=== PATIENT | female | born 1960 | race Caucasian/White ===

== ENCOUNTER 2021-06-21 05:56 | Day surgery (SDC) | payer OTHER ==
[2021-06-16 10:29] VITALS: BMI 50.1
[~2021-06-21 05:56] MED LIST: LACTATED RINGERS 1,000 ML IV SCH
[2021-06-21 06:43] VITALS: TEMP 98.6
[2021-06-21] MEDS ORDERED: LACTATED RINGERS 1,000 ML IV ONE ×2 (06:56)
[2021-06-21] MEDS ORDERED: PROPOFOL 10 MG/ML 20 ML VIAL IV ONE (07:02)
[2021-06-21 07:08] LABS: Glucose,Whole Blood 161 mg/dL (75-99)
--- NOTE | 2021-06-21 07:24 | P.PCN ---
Date of Procedure: 06/21/21 Procedure(s) Performed: BRIEF HISTORY: Patient is a 61-year-old pleasant white female scheduled for an elective colonoscopy as a part of evaluation of positive cologuard PROCEDURE PERFORMED: Colonoscopy. PREOPERATIVE DIAGNOSIS: Positive cologuard. IV sedation per Anesthesia. PROCEDURE: After informed consent was obtained, the patient, was brought into the endoscopy unit. IV sedation was administered by Anesthesia under continuous monitoring. Digital rectal examination was normal. Initially the Olympus CF-160 flexible video colonoscope was then inserted in the rectum, gradually advanced into the cecum without any difficulty. Careful examination was performed as the scope was gradually being withdrawn. Ileocecal valve and the appendiceal orifice were visualized and appeared normal. Prep was excellent. Mucosa of the cecum, ascending colon, transverse colon, descending colon, sigmoid colon, and rectum appeared normal. Retroflexion was performed in the rectum and monitor hemorrhoids were seen. The patient tolerated the procedure well. IMPRESSION: Normal-appearing colon from rectum to cecum with no evidence of colorectal neoplasia Small internal hemorrhoids . RECOMMENDATIONS: Findings of this examination were discussed with the patient as well as her family. She was advised to have a repeat surveillance colonoscopy in 10 years..
[2021-06-21 07:44] VITALS: RESP 16
[2021-06-21 08:05] VITALS: BP 122/63; PULSE 91
== END 2021-06-21 08:30 | disposition home or self-care (01) ==
LOC: ORWHC2ENDO 05:56
PROVIDERS: ATTEND Internal Medicine Gastroenterology
DX: Z12.11 Encounter for screening for malignant neoplasm of colon (principal); K64.8 Other hemorrhoids
CPT/HCPCS: 45378; J2704

== ENCOUNTER → 2022-04-07 | Outpatient (CLI) | payer OTHER ==
--- NOTE | 2022-04-11 08:18 | MM ---
Reason for Exam: Screening (asymptomatic). Last mammogram was performed 2 year(s) and 0 month(s) ago. Patient History: Menarche at age 10. Postmenopausal. Risk Values: Hue 5 year model risk: 1.2%. NCI Lifetime model risk: 5.5%. Prior Study Comparison: 06/05/2016 Bilateral MG screening mammo w CAD - 2, [facility]. 06/05/2019 Bilateral MG screening mammo w CAD - 2, [facility]. 04/13/2020 Right MG diagnostic mammo RT w CAD - 2, [facility]. Tissue Density: There are scattered fibroglandular densities. Findings: Analyzed By CAD. A few small scattered benign peribronchial stations bilaterally are redemonstrated. Prominent but benign-appearing bilateral axillary lymph nodes are again seen. There is no suspicious new group of microcalcifications or new suspicious mass in either breast. Overall Assessment: Benign, BI-RAD 2 Management: Screening Mammogram of both breasts in 1 year. A clinical breast exam by your physician is recommended on an annual basis and results should be correlated with mammographic findings. Electronically signed and approved by: Lazaro Womack M.D.
== END | disposition home or self-care (01) ==
LOC: RADMAMWWP 14:45
PROVIDERS: ATTEND Family Medicine
DX: Z12.31 Encounter for screening mammogram for malignant neoplasm of breast (principal); Z78.0 Asymptomatic menopausal state
CPT/HCPCS: 77067

== ENCOUNTER → 2023-01-12 | Outpatient (CLI) | payer BC ==
--- NOTE | 2023-01-12 15:43 | US ---
EXAMINATION TYPE: US thyroid st tissue head/neck DATE OF EXAM: 01/12/2023 COMPARISON: NONE CLINICAL INDICATION: Female, 62 years old with history of E04.1 NONTOXIC SINGLE THYROID NODULE; Pt st ates nodules visualized on outside scan GLAND SIZE: Right Lobe: 4.5 x 2.5 x 1.7 cm Overall Parenchyma: heterogenous Left Lobe: 4.5 x 2.0 x 2.0 cm Overall Parenchyma: heterogenous Isthmus Thickness: 0.4 cm NODULES RIGHT: # of nodules measured on right: 1 1. 0.9 X 0.7 x 0.8 cm, lower , Prior size: No prior TIRADS Score: 0 TIRADS Category 1: Benign Composition: Cystic or almost completely cystic (0 points). Recommendation: No FNA LEFT: # of nodules measured on left: 1 1. 1.1 X 0.8 x 1.0 cm, upper, Prior size: No prior TIRADS Score: 0 TIRADS Category 1: Benign Composition: Cystic or almost completely cystic (0 points). Recommendation: No FNA ISTHMUS: # of nodules measured in the isthmus: 0 Bilateral neck scanned. Heterogeneous thyroid with probable multiple colloid cysts scattered througho ut bilaterally. Largest cysts on each lobe measured. Possible enlarged lymph node right lateral neck just superior to right thyroid= 1.4 x 0.9 x 0.9 cm. IMPRESSION: 1. Bilateral Colloid cysts. No suspicious thyroid masses. 2. Prominent right neck lymph node which is not enlarged by CT criteria.
== END | disposition home or self-care (01) ==
LOC: RADUSWWP 14:39
PROVIDERS: ATTEND Family Medicine
DX: E04.2 Nontoxic multinodular goiter (principal)
CPT/HCPCS: 76536

== ENCOUNTER → 2023-04-10 | Outpatient (CLI) | payer BC ==
--- NOTE | 2023-04-11 20:14 | MM ---
Reason for Exam: Screening (asymptomatic). Last screening mammogram was performed 12 month(s) ago. Patient History: Menarche at age 10. Postmenopausal. Risk Values: Hue 5 year model risk: 1.2%. NCI Lifetime model risk: 5.3%. Prior Study Comparison: 06/05/2019 Bilateral MG screening mammo w CAD - 2, [facility]. 04/13/2020 Right MG diagnostic mammo RT w CAD - 2, [facility]. 04/07/2022 Bilateral MG screening mammo w CAD, [facility]. Tissue Density: The breast tissue is heterogeneously dense. This may lower the sensitivity of mammography. Findings: Analyzed By CAD. There is no suspicious group of microcalcifications or new suspicious mass in either breast. Overall Assessment: Negative, BI-RAD 1 Management: Screening Mammogram of both breasts in 1 year. . Patient should continue monthly self-breast exams. A clinical breast exam by your physician is recommended on an annual basis. This exam should not preclude additional follow-up of suspicious palpable abnormalities. Note on Hue scores and lifetime risk: 1. A Hue score greater than 3% is considered moderate risk. If this is the case, consider specialist referral to assess eligibility for a risk reducing agent. 2. If overall lifetime risk for the development of breast cancer is 20% or higher, the patient may qualify for future screening with alternating mammogram and breast MRI. Electronically signed and approved by: Yoseph Atkinson M.D. Radiologist
== END | disposition home or self-care (01) ==
LOC: RADMAMWWP 15:44
PROVIDERS: ATTEND Family Medicine
DX: Z12.31 Encounter for screening mammogram for malignant neoplasm of breast (principal); Z78.0 Asymptomatic menopausal state
CPT/HCPCS: 77063; 77067